=== PATIENT | female | born 1990 | race Hispanic/Latino ===

== ENCOUNTER 2018-01-29 23:39 | Emergency (ER) | payer MEDICAID, OTHER ==
[2018-01-30] MEDS ORDERED: ORPHENADRINE CITRATE 30 MG/ML ML ONE
[2018-01-30] MEDS ORDERED: KETOROLAC TROMETHAMINE 60 MG/2 ML VIAL ONE
== END 2018-01-30 00:51 | disposition home or self-care (01) ==
LOC: EDH 23:39
DX: S43.491A Other sprain of right shoulder joint, initial encounter (principal); X50.0XXA Overexertion from strenuous movement or load, initial encounter; Y93.89 Activity, other specified; Y92.89 Other specified places as the place of occurrence of the external cause; Y99.8 Other external cause status
CPT/HCPCS: 73030; 96372 ×2; 99284; J1885; J2360